=== PATIENT | male | born 1975 | race African-American/Black ===

== ENCOUNTER 2017-02-04 15:25 | Emergency (ER) | payer MEDICAID ==
[~2017-02-04] VITALS: Ht 180.3 cm; Wt 77.0 kg
[~2017-02-04 15:25] MED LIST: DICL50 PO
[2017-02-04 15:27] VITALS: BP 124/86; PULSE 68; RESP 16; TEMP 99; O2SAT 100
--- NOTE | 2017-02-04 15:49 | PD ---
Physical Exam Time Seen by Provider: 15:47 Narrative 41yo M with lump to right axillae x2 months. Is painful. Denies fever, vomiting. Patient stable. Patient seen in triage. Awaiting bed placement. Data Data Last Documented VS Vital Signs Date Time Temp Pulse Resp B/P Pulse Ox O2 Delivery O2 Flow Rate FiO2 02/04/17 15:27 99.0 68 16 124/86 100 MDM Supervised Visit with BIRD: Ashlie Miranda Feb 04, 2017 15:49
[2017-02-04] MEDS ORDERED: BACT800T5 PO (15:58)
--- NOTE | 2017-02-04 15:58 | PD ---
HPI . arm pit swelling x 2-3 months Chief Complaint: Skin Problem Time Seen by Provider: 15:51 Travel History International Travel<30 days: No Contact w/Intl Traveler<30days: No Traveled to known affect area: No History of Present Illness HPI 41-year-old male here with complaints of an armpit swelling for 2-3 months. Patient says that this has an area in his right axilla that has been swollen for the past 2-3 months. He didn't think much of it and thought it would go away. But now is starting to hurt more than usual. He denies any recent illness, fever or chills. He has not seen his primary care provider for this issue. He decided to come to the ED for further evaluation. PFSH Past Medical History Anemia: Yes Anxiety: Yes Depression: Yes Cancer: No Diabetes: No Diminished Hearing: No Endocrine: No Gastrointestinal Disorders: Yes (GASTRITIS) Genitourinary: No Hypertension: Yes Immune Disorder: No Implanted Vascular Access Dvce: No Musculoskeletal: No Neurologic: No Psychiatric: Yes Reproductive: No Respiratory: No Thyroid Disease: No Ulcer: Yes PNEUMOCCOCAL Vaccine (Year): 1 Past Surgical History Other Surgery: No Social History Alcohol Use: No Tobacco Use: No Substance Use: No Allergies-Medications (Allergen,Severity, Reaction): Coded Allergies: No Known Allergies (Verified , 11/11/14) Reported Meds & Prescriptions Reported Meds & Active Scripts Active Bactrim DS (Sulfamethoxazole-Trimethoprim) 800-160 Mg Tab 1 Tab PO BID Voltaren (Diclofenac Sodium) 50 Mg Tabec 50 Mg PO TID Review of Systems General / Constitutional: No: Fever Eyes: No: Visual changes HENT: No: Headaches Cardiovascular: No: Chest Pain or Discomfort Respiratory: No: Shortness of Breath Gastrointestinal: No: Abdominal Pain Genitourinary: No: Dysuria Musculoskeletal: No: Pain Skin: Positive Other (right axilla swelling), No Rash Neurologic: No: Weakness Psychiatric: No: Depression Endocrine: No: Polydipsia Hematologic/Lymphatic: No: Easy Bruising Physical Exam Narrative GENERAL: AAO x 3, no acute distress, Well-nourished, well-developed patient. SKIN: Warm and dry. No visible rashes or bruising. Right axilla with a palpable what appears to be a lymph node. It is perfectly [place] with no fluctuance. This is not an abscess. There is no fluid collection. HEAD: Normocephalic and atraumatic. EYES: No scleral icterus. No injection or drainage. EOM intact, PERRLA ENT: No nasal drainage noted. Mucous membranes pink. Airway patent. NECK: Supple, trachea midline. No JVD. CARDIOVASCULAR: Regular rate and rhythm without murmurs, gallops, or rubs. RESPIRATORY: Breath sounds equal bilaterally. No accessory muscle use. No rhonchi or rales. GASTROINTESTINAL: Abdomen soft, non-tender, nondistended. EXTREMITIES: No cyanosis or edema. BACK: Nontender without obvious deformity. No CVA tenderness. PSYCH: AAO x 3, normal affect. Data Data Last Documented VS Vital Signs Date Time Temp Pulse Resp B/P Pulse Ox O2 Delivery O2 Flow Rate FiO2 02/04/17 15:27 99.0 68 16 124/86 100 MDM Medical Decision Making Medical Screen Exam Complete: Yes Emergency Medical Condition: Yes Medical Record Reviewed: Yes Differential Diagnosis Lymph node swelling, less likely abscess, less likely folliculitis Narrative Course 41-year-old male here with complaints of an armpit swelling for 2-3 months. Patient says that this has an area in his right axilla that has been swollen for the past 2-3 months. He didn't think much of it and thought it would go away. But now is starting to hurt more than usual. He denies any recent illness, fever or chills. He has not seen his primary care provider for this issue. He decided to come to the ED for further evaluation. Patient seen and examined. This does not appear to be an abscess. I've explained this the patient. I will go ahead and give him a round of antibiotics as he has been dealing with this for the past 2-3 months. I explained to him that more than likely this will not resolve his issue and he will need to see his primary care provider for further workup. I explained to him that he will need an ultrasound. I explained that one of the possibilities of this could be worst case scenario some type of cancer/mass. Patient verbalized understanding of instructions. I have advised him in the meantime that he can try to use warm compresses to see if this actually turns into an abscess and he can return to the ED as we will be more than happy to drain it. Patient verbalized understanding of instructions, questions were answered, and thanked me for their care. I advised them if their condition worsens, please return to the nearest emergency room for further care. Diagnosis Primary Impression: Swelling of lymph node Patient Instructions: General Instructions Additional Instructions: Please return to emergency department if your symptoms return or worsen. Follow up with your primary care provider. Take medications as prescribed. As we discussed, you will need to see her primary care provider for further workup and recommendations. If this swelling does not go down, you will need an ultrasound as we discussed. Med/Other Pt SpecificInfo: Prescription(s) given Scripts Sulfamethoxazole-Trimethoprim (Bactrim DS)800-160 Mg Tab1 Tab PO BID #20 TAB Prov:Werner Celeste MD 02/04/17 Disposition: 01 DISCHARGE HOME Condition: Stable Ivory Wolf Feb 04, 2017 15:58
== END 2017-02-04 16:02 | disposition home or self-care (01) ==
LOC: NEPK 15:25
DX: R59.0 Localized enlarged lymph nodes (principal); I10 Essential (primary) hypertension; Z86.2 Personal history of diseases of the blood and blood-forming organs and certain disorders involving the immune mechanism; Z86.59 Personal history of other mental and behavioral disorders; Z87.19 Personal history of other diseases of the digestive system
CPT/HCPCS: 99282